=== PATIENT | female | born 1970 | race African-American/Black ===

== ENCOUNTER 2024-05-07 10:58 | Emergency (ER) | payer OTHER ==
[2024-05-07 12:42] LABS: SARS-CoV-2 Antigen CONTROL BLUE LINE VIS/BG OK; SARS-CoV-2 Antigen Rapid Res Negative (Negative)
--- NOTE | 2024-05-07 13:03 | RAD REPORT ---
EXAMINATION: ONE VIEW CHEST XR CLINICAL INDICATION: COUGH TECHNIQUE: Frontal chest projection is submitted. Examination is limited by patient positioning and t echnique. COMPARISON: No prior exam. FINDINGS: The lungs are well inflated and clear. The heart is normal in size. No displaced fractures identified . IMPRESSION: No acute intrathoracic abnormalities.
--- NOTE | 2024-05-07 13:46 | ER ---
Nurse's Notes [facility] Name: Mildred Sim Age: 54 yrs Sex: Female : 1970 Arrival Date: 05/07/2024 Time: 10:58 Bed 10 Private MD: Diagnosis: Elevated blood pressure reading;Headache;Cough Presentation: 05/07 11:30 Chief complaint: Patient states: Elevated blood pressure onset last night. Pt states cm10 that she checked her BP last night her BP was in the 150s/100s. Pt reports that she has a headache. Coronavirus screen: Client denies travel out of the [place] in the last 14 days. Ebola Screen: Patient denies travel to an Ebola-affected area in the 21 days before illness onset. No symptoms or risks identified at this time. Initial Sepsis Screen: Does the patient meet any 2 criteria? No. Patient's initial sepsis screen is negative. Does the patient have a suspected source of infection? No. Patient's initial sepsis screen is negative. Risk Assessment: Do you want to hurt yourself or someone else? Patient reports no desire to harm self or others. Onset of symptoms was May 07, 2024. 11:30 Method Of Arrival: Ambulatory cm10 11:30 Acuity: JARRED 3 cm10 Triage Assessment: 11:33 General: Appears in no apparent distress. comfortable, Behavior is calm, cooperative, cm10 appropriate for age. Neuro: No deficits noted. Level of Consciousness is awake, alert, obeys commands, Oriented to person, place, time, situation, Appropriate for age. Respiratory: No deficits noted. Airway is patent Respiratory effort is even, unlabored, Respiratory pattern is regular, symmetrical. Historical: - Allergies: 11:32 No Known Allergies; cm10 - PMHx: 11:32 Cerebrovascular accident; Hypertensive disorder; Diabetes mellitus; cm10 11:33 Headache; cm10 - Immunization history:: Adult Immunizations up to date. - Infectious Disease History:: Denies. - Social history:: Smoking status: unknown. Screenin:[facility] ED Fall Risk Assessment (Adult) History of falling in the last 3 months, rs5 including since admission No falls in past 3 months (0 pts) Confusion or Disorientation No (0 pts) Intoxicated or Sedated No (0 pts) Impaired Gait No (0 pts) Mobility Assist Device Used No (0 pt) Altered Elimination No (0 pt) Score/Fall Risk Level 0 - 2 = Low Risk Oriented to surroundings, Maintained a safe environment. Abuse screen: Denies threats or abuse. Nutritional screening: No deficits noted. Tuberculosis screening: No symptoms or risk factors identified. Assessment: 11:44 General: Appears in no apparent distress. uncomfortable, Behavior is calm, cooperative. rs5 Pain: Complains of pain in head Pain currently is 4 out of 10 on a pain scale. Quality of pain is described as aching, Is continuous. Neuro: Level of Consciousness is awake, alert, obeys commands, Oriented to person, place, time, situation. Cardiovascular: Patient's skin is warm and dry. Respiratory: Airway is patent Respiratory effort is even, unlabored, Respiratory pattern is regular, symmetrical. GI: Abdomen is round non-distended, Abd is soft and non tender X 4 quads. : No signs and/or symptoms were reported regarding the genitourinary system. EENT: No signs and/or symptoms were reported regarding the EENT system. Derm: Skin is intact, Skin is dry, Skin is normal. Musculoskeletal: Range of motion: intact in all extremities. 12:55 Reassessment: Patient and/or family updated on plan of care and expected duration. Pain rs5 level reassessed. Patient is alert, oriented x 3, equal unlabored respirations, skin warm/dry/pink. 13:09 Reassessment: Patient and/or family updated on plan of care and expected duration. Pain rs5 level reassessed. Patient is alert, oriented x 3, equal unlabored respirations, skin warm/dry/pink. 14:05 Reassessment: Patient and/or family updated on plan of care and expected duration. Pain rs5 level reassessed. Patient is alert, oriented x 3, equal unlabored respirations, skin warm/dry/pink. pt up for discharge, pt left before signing discharge paperwork. Vital Signs: 11:30 BP 131 / 92; Pulse 83; Resp 16; Temp 98.2(O); Pulse Ox 100% ; Weight 74.84 kg; Height 5 cm10 ft. 7 in. ; Pain 9/10; 13:10 BP 134 / 88; Pulse 70; Resp 17; Pulse Ox 99% on R/A; rs5 14:01 BP 141 / 84; Pulse 74; Resp 17; Pulse Ox 99% on R/A; rs5 11:30 Body Mass Index 25.84 (74.84 kg, 170.18 cm) cm10 11:30 Pain Scale: Adult cm10 ED Course: 11:02 Patient arrived in ED. ra3 11:08 Eunice Jones MD is Attending Physician. sd2 11:32 Triage completed. cm10 11:33 Arm band placed on right wrist. Patient placed in waiting room. cm10 11:41 Patient has correct armband on for positive identification. Placed in gown. Bed in low rs5 position. Call light in reach. Side rails up X2. 12:25 Gómez Delgado, RN is Primary Nurse. rs5 12:52 XRAY Chest (1 view) In Process Unspecified. EDMS 13:09 No provider procedures requiring assistance completed. rs5 14:05 Provided Education on: discharge instructions . rs5 14:07 Patient did not have IV access during this emergency room visit. rs5 Administered Medications: No medications were administered Medication: 13:09 VIS not applicable for this client. rs5 Outcome: 13:45 Discharge ordered by . sd2 14:07 Discharged to home ambulatory, rs5 14:07 Condition: stable 14:07 Discharge instructions given to patient, family, Instructed on discharge instructions, follow up and referral plans. Demonstrated understanding of instructions, follow-up care, 14:10 Patient left the ED. rs5 Signatures: Dispatcher [employer] EDIN Eunice Jones MD MD sd2 Gómez Delgado, ALISON ROSAS rs5 Aparna Obregon RN RN 10 Alice Hamilton ra3
--- NOTE | 2024-05-07 13:46 | EDPHYS ---
Physician Documentation [facility] Name: Mildred Sim Age: 54 yrs Sex: Female : 1970 Arrival Date: 05/07/2024 Time: 10:58 Bed 10 Private MD: ED Physician Eunice Jones HPI: 05/07 13:41 This 54 yrs old Black Female presents to ER via Ambulatory with complaints of High sd2 Blood Pressure. 13:41 54-year-old female presents with chief complaint of high blood pressure. She reports sd2 that her blood pressure was running in the 150s over 100s last night and then dropped to 138 systolic over the 90s. She reports she has a history of strokes and was concerned that she may have issues due to her blood pressure. She did not have any symptoms of a stroke otherwise. She does report that she has a headache but reports she has daily headaches that she takes Excedrin for and that these are unchanged from her prior headaches. She also reports concern that she may have pneumonia and that she was "born with pneumonia." She was given a Z-Aguila last week by her PCP but feels like her cough has not improved. She denies any fevers or other symptoms.. Historical: - Allergies: 11:32 No Known Allergies; cm10 - PMHx: 11:32 Cerebrovascular accident; Hypertensive disorder; Diabetes mellitus; cm10 11:33 Headache; cm10 - Immunization history:: Adult Immunizations up to date. - Infectious Disease History:: Denies. - Social history:: Smoking status: unknown. ROS: 13:42 Constitutional: Negative for fever, chills, and weight loss, Eyes: Negative for injury, sd2 pain, redness, and discharge, Cardiovascular: Negative for chest pain, palpitations, and edema, 13:42 Abdomen/GI: Negative for abdominal pain, nausea, vomiting, diarrhea. MS/Extremity: Negative for injury and deformity, Skin: Negative for injury, rash, and discoloration, 13:42 Respiratory: Positive for cough, Negative for pleurisy, shortness of breath, wheezing, 13:42 Neuro: Positive for headache, Negative for altered mental status, dizziness, numbness, tingling, visual changes, weakness, Exam: 13:42 Constitutional: This is a well developed, well nourished patient who is awake, alert, sd2 and in no acute distress. Head/Face: Normocephalic, atraumatic. Eyes: EOMI, normal conjunctiva bilaterally Chest/axilla: Normal chest wall appearance and motion. Nontender with no deformity. Cardiovascular: Regular rate and rhythm with a normal S1 and S2. No gallops, murmurs, or rubs. 2+ distal pulses. Respiratory: Lungs have equal breath sounds bilaterally, clear to auscultation and percussion. No rales, rhonchi or wheezes noted. No increased work of breathing, no retractions or nasal flaring. Abdomen/GI: Soft, non-tender, with normal bowel sounds. No guarding or rebound. No evidence of tenderness throughout. Skin: Warm, dry with normal turgor. Normal color with no rashes, no lesions, and no evidence of cellulitis. MS/ Extremity: Pulses equal, no cyanosis. Neurovascular intact. Full, normal range of motion. Neuro: Awake and alert, GCS 15, oriented to person, place, time, and situation. Cranial nerves II-XII grossly intact. Motor strength 5/5 in all extremities. Sensory grossly intact. Cerebellar exam normal. Normal gait. Psych: Awake, alert, with orientation to person, place and time. Behavior, mood, and affect are within normal limits. Vital Signs: 11:30 BP 131 / 92; Pulse 83; Resp 16; Temp 98.2(O); Pulse Ox 100% ; Weight 74.84 kg; Height 5 cm10 ft. 7 in. ; Pain 9/10; 13:10 BP 134 / 88; Pulse 70; Resp 17; Pulse Ox 99% on R/A; rs5 14:01 BP 141 / 84; Pulse 74; Resp 17; Pulse Ox 99% on R/A; rs5 11:30 Body Mass Index 25.84 (74.84 kg, 170.18 cm) cm10 11:30 Pain Scale: Adult cm10 MDM: 11:53 Medical Screening Exam initiated sd2 13:42 Differential diagnosis: HTN, doubt end organ damage, doubt CVA/TIA, doubt ICH, PNA, sd2 viral URI among others. Data reviewed: vital signs, nurses notes, lab test result(s), radiologic studies. Care significantly affected by the following chronic conditions: Diabetes, Hypertension. Counseling: I had a detailed discussion with the patient and/or guardian regarding the historical points, exam findings, and any diagnostic results supporting the discharge/admit diagnosis, lab results, radiology results, the need for outpatient follow up, to return to the emergency department if symptoms worsen or persist or if there are any questions or concerns that arise at home. ED course: Pt feeling improved and reassured by negative results. Advised of continued supportive care and need for outpatient follow up. Verbalizes understanding of dc plan and strict return precautions. . 05/07 11:53 Order name: SARS RAPID; Complete Time: 12:44 sd2 05/07 11:53 Order name: Flu; Complete Time: 12:44 sd2 05/07 11:53 Order name: XRAY Chest (1 view); Complete Time: 13:08 sd2 Administered Medications: No medications were administered Disposition Summary: 05/07/24 13:45 Discharge Ordered Problem: an ongoing problem sd2 Symptoms: are unchanged sd2 Condition: Stable sd2 Diagnosis - Elevated blood pressure reading sd2 - Headache sd2 - Cough sd2 Followup: sd2 - With: Private Physician - When: 2 - 3 days - Reason: Recheck today's complaints, Continuance of care, Re-evaluation by your physician Discharge Instructions: - Discharge Summary Sheet sd2 - Hypertension, Adult sd2 - Viral Illness, Adult sd2 Forms: - Medication Reconciliation Form sd2 - Antibiotic Education sd2 - Prescription Opioid Use sd2 - Patient Portal Instructions sd2 - Leadership Thank You Letter sd2 Signatures: Dispatcher [employer] Eunice Newman MD MD sd2 Aparna Obregon RN RN cm10
== END 2024-05-07 14:10 | disposition home or self-care (01) ==
LOC: ER 10:58
DX: I10 Essential (primary) hypertension (principal); R51.9 Headache, unspecified; R05.9 Cough, unspecified; E11.9 Type 2 diabetes mellitus without complications; Z86.73 Personal history of transient ischemic attack (TIA), and cerebral infarction without residual deficits; Z11.52 Encounter for screening for COVID-19
CPT/HCPCS: 36415; 71045; 87804; 87811; 99283